=== PATIENT | female | born 1985 | race Caucasian/White ===

== ENCOUNTER 2023-03-16 15:33 | Emergency (ER) | payer OTHER, SELFPAY ==
[2023-03-16 15:40] VITALS: BP 142/93; PULSE 110; RESP 18; TEMP 37.1; O2SAT 99; BMI 30.3
[2023-03-16] MEDS: IBUPROFEN 400 MG TABLET 800 MG PO (17:25)
[2023-03-16] MEDS: TETANUS/DIPHTH/PERTUSSIS 0.5 ML SYRINGE IM (17:25)
--- NOTE | 2023-03-16 17:47 | ED.EYEPROB ---
HPI - Eye Problem General Date Seen: 03/16/23 Chief complaint: Eye Problems Stated complaint: left eye hit it on desk Time Seen by Provider: 03/16/23 15:50 Source: patient Mode of arrival: ambulatory Limitations: no limitations History of Present Illness HPI Narrative: Patient is a very nice 38-year-old female who presents here with a right eye injury, this occurred a few hours ago, when she bent over and hit her eye against the desk. She notes that she has trouble seeing she almost felt like there was something in her eye, but now she just has troubles seeing out of it, and tearing. He has a little bit photophobic with, she does not were contact lenses. She does not were glasses. She did not rinse or I would her do anything else to it. chief complaint: eye pain and foreign body Onset (ago): hour(s) Onset description: sudden Duration: progressively worsening Location: right eye Eye Symptoms: redness and foreign body sensation Place: home Mechanism: direct trauma Severity: moderate Associated symptoms: none Treatments Prior to Arrival: none Related Data Patient tetanus UTD: No Home Medications Medication Instructions Recorded Confirmed liraglutide (weight loss) 3 mg/0.5 3 mg subcut DAILY 03/16/23 03/16/23 mL (18 mg/3 mL) subcut pen injector (Saxenda) metoprolol succinate 50 mg 50 mg PO QDAY 03/16/23 03/16/23 tablet,extended release 24 hr (Toprol XL) phentermine 37.5 mg tablet 37.5 mg PO DAILY 03/16/23 03/16/23 (Adipex-P) Allergies Allergy/AdvReac Type Severity Reaction Status Date / Time cetirizine [From [facility]] Allergy Mild Verified 03/16/23 15:45 Review of Systems Status of ROS: Reports: 10 or more systems reviewed and unremarkable except as noted in History and below Exam Narrative: Exam Narrative: On examination Sena's in no apparent distress she is pleasant or Gram salmon a beasley of the right eye shows a lot of redness and tearing, I was able to put Alcaine in her right eye, she notes that that made her eye a lot better, visual acuity is noted. Extraocular muscles are normal no swelling along the lid, no obvious purulence. No other injury along her face region. Her pupils are equal round reactive to light, I was able to use the slit lamp, and she has small abrasion laceration along a bottom the 6 o'clock position, her cornea. Fluorescein was used, there is no uptake into her anterior chamber. There is no flap associated with this. No foreign body noted. I everted her upper lip. Was normal checked her lower lid nose also normal. Resume ice ointment was used, along with another drop of Alcaine. We gave her a dose of ibuprofen, and we also updated her tetanus. Const: Vital Signs, click to edit/add: Vital Signs - 24 hr 03/16/23 15:40 Temperature 98.7 F Pulse Rate [Pulse Oximeter] 110 H Respiratory Rate 18 Blood Pressure [Ri ght Upper Arm] 142/93 H Pulse Oximetry 99 Oxygen Delivery Me thod Room Air Documenting provider has reviewed patient's vital signs: yes Course Vital Signs Vital signs: Initial Vital Signs Temperature 98.7 F 03/16/23 15:40 Temperature Source Temporal Artery Scan 03/16/23 15:40 Pulse Rate 110 H 03/16/23 15:40 Pulse Rhythm Regular 03/16/23 15:40 Respiratory Rate 18 03/16/23 15:40 Blood Pressure 142/93 H 03/16/23 15:40 Blood Pressure Mean 109 H 03/16/23 15:40 Blood Pressure Position Sitting 03/16/23 15:40 Pulse Oximetry 99 03/16/23 15:40 Oxygen Delivery Method Room Air 03/16/23 15:40 Vital Signs Temperature 98.7 F 03/16/23 15:40 Pulse Rate 110 H 03/16/23 15:40 Respiratory Rate 18 03/16/23 15:40 Blood Pressure 142/93 H 03/16/23 15:40 Pulse Oximetry 99 03/16/23 15:40 Oxygen Delivery Method Room Air 03/16/23 15:40 Temperature 98.7 F 03/16/23 15:40 Pulse Rate 110 H 03/16/23 15:40 Respiratory Rate 18 03/16/23 15:40 Blood Pressure 142/93 H 03/16/23 15:40 Pulse Oximetry 99 03/16/23 15:40 Oxygen Delivery Method Room Air 03/16/23 15:40 MDM - Eye Problem MDM Narrative Medical decision making narrative: Think this is a corneal abrasion, I think it will be improved tomorrow and I told her/. I would recommend if it is not, that she see the [place], she was comfortable with this plan, she does not were contacts Obdulia to worry about that. I do not think we have to do any cycloplegic see there. Differential Diagnosis Differential diagnosis: Likely corneal abrasion, conjunctivitis, acute iritis, hyphema, periorbital cellulitis, subconjunctival hemorrhage, glaucoma, corneal ulcer and ruptured globe Medical Records Attestation: I reviewed the patient's medical records. Discharge Plan Discharge Clinical Impression: Corneal abrasion Patient Disposition: Home, Self-Care Condition: Stable Instructions: Corneal Abrasion (DC) Additional Instructions: Home rest do not rub your eye, use the re through mycin ointment 3 times a day like I showed you in your right eye. If your not significantly better by tomorrow then get seen by [facility]. Return here if any eye swelling, inability to see or other issues. Activity Level: Light activity Prescriptions: No Action phentermine [Adipex-P] 37.5 mg tablet 37.5 mg PO DAILY Rx Instructions: must administer 30 minutes before or 1-2 hours after breakfast Saxenda 3 mg/0.5 mL (18 mg/3 mL) pen injector 3 mg subcut DAILY Rx Instructions: start week 5 of therapy metoprolol succinate [Toprol XL] 50 mg tablet extended release 24 hr 50 mg PO QDAY Follow Up/Referrals: Provider,Not a Local [Primary Care Provider] - Stand Alone Forms: Expert [employer] Info Instructions
== END 2023-03-16 17:27 | disposition home or self-care (01) ==
PROVIDERS: Emergency Provider Family Medicine
DX: S05.01XA Injury of conjunctiva and corneal abrasion without foreign body, right eye, initial encounter (principal); W22.8XXA Striking against or struck by other objects, initial encounter
CPT/HCPCS: 90471; 90715; 96372; 99283; A9270